=== PATIENT | male | born 1960 | race Caucasian/White ===

== ENCOUNTER 2023-01-13 09:55 | Day surgery (SDC) | payer OTHER ==
[2023-01-13] VITALS (11 sets, daily range): BP systolic 130–144; BP diastolic 61–94; PULSE 81–103; TEMP 97.3–98.2
[~2023-01-13] VITALS: Ht 190.5 cm; Wt 122.2 kg
[2023-01-13] MEDS ORDERED: CRESTOR 10MG10 MG PO (10:34)
[2023-01-13] MEDS ORDERED: HYZAAR 25 MG-101 TAB PO (10:34)
[2023-01-13] MEDS ORDERED: MOBIC15 MG PO (10:35)
[2023-01-13] MEDS ORDERED: LASIX 20MG TABL20 MG PO (10:35)
[2023-01-13] MEDS ORDERED: D3-5050000 IU (10:37)
[2023-01-13] MEDS ORDERED: TYLENOL 500MG500 MG PO (10:38)
[2023-01-13] MEDS ORDERED: NORCO 325 MG-51 TAB PO (10:39)
[2023-01-13] MEDS ORDERED: ASPIRIN E.C. 8181 MG PO (10:39)
--- NOTE | 2023-01-13 12:18 | NUR ---
1008 PT AMBULATORY TO BAY 8 WITH IMPAIRED GAIT, RELATED TO BILATERAL KNEE PAIN. BREATHING EVEN AND UNLABORED. PT IS ALERT AND ORIENTED, ACCOMPANIED BY HIS . CONSENTS REVIEWED AND SIGNED BY PT. PEDAL PULSES OBTAINED BY RACHELLE. IV ESTABLISHED. LR INFUSING VIA DIAL A FLOW AT 100 ML/HR. BILATERAL KNEES SCRUBBED WITH CHLORHEXIDINE SPONGES. KNEE HIGH VICKY HOSE PLACED ON LEFT LOWER EXTREMITY. CALL LIGHT IN REACH. WARM BLANKET PROVIDED.
--- NOTE | 2023-01-13 18:50 | NUR ---
PT TO ROOM 330 FROM PACU WITH AT BEDSIDE. A&O X4. VSS. DRESSING & ACEWRAP TO BILATERAL KNEES CDI WITH TEDS & ICEPACKS ON BLE. CMS WNL. X2 HEMOVACS TO COMPRESSION W/ BLOODY OUTPUT. IVF INFUSING TO RIGHT WRIST. DENYING ANY PAIN OR N/V. ORIENTED PT TO ROOM. BED LOWERED &CALL LIGHT IN REACH. REQUESTING SOME FOOD.
--- NOTE | 2023-01-13 20:00 | NUR ---
PT ABLE TO TOLERATE FOOD WITHOUT N/V. DENYING PAIN & FURTHER NEEDS AT THIS TIME.
--- NOTE | 2023-01-13 23:46 | NUR ---
PT AMBULATED TO RESTROOM WITH X1 ASSIST. C/O PAIN 11/14 IN BILAT KNEES - SEE JUN. BACK IN BED W/ FALL PRECAUTIONS IN PLACE & CALL LIGHT IN REACH.
[2023-01-14 03:14] VITALS: BP 128/68; PULSE 88; TEMP 97.6
[2023-01-14 03:21] VITALS: BP_SYST 128
[2023-01-14 06:50] VITALS: BP 135/55; PULSE 82; TEMP 98.6
[2023-01-14 09:01] VITALS: BP_SYST 135
--- NOTE | 2023-01-14 09:27 | NUR ---
Initial visit; Patient thanked Sign Painter Helper for looking in on him and offering to keep him in her prayers. Patient states that he is doing well.
--- NOTE | 2023-01-14 10:11 | NUR ---
Business Systems Advisor met with Patient at bedside to conduct Care Managment Assessment and discuss discharge planning. Patient lives in [facility] with his and is established with PCP Dr. Virk. Patient is covered with [employer] insurance and requests discharge medications be sent to [facility]. Patient endorses the use of CPAP prior to admission and states that he has a cane, walker, and crutches available at home. Patient reports that he has [facility] on file. Patient would like OP PT established at [facility] when discharged. Discharge Plan: Home with OP PT.
[2023-01-14 11:05] VITALS: BP 112/54; PULSE 88; TEMP 98.6
[2023-01-14 13:02] VITALS: BP_SYST 112
[2023-01-14 13:04] LABS: HEMOGLOBIN 10.6 g/dl (13.5-18.0)
[2023-01-14 13:17] LABS: HEMATOCRIT 30.1 % (42.0-52.0)
[2023-01-14 13:19] LABS: ALBUMIN 3.6 gm/dL (3.4-4.8); BILIRUBIN,TOTAL 0.4 mg/dL (0.2-1.2); CALCIUM 9.4 mg/dL (8.4-10.2); CREATININE, serum 1.27 mg/dL (0.72-1.25); POTASSIUM 4.1 mmol/L (3.5-4.5)
[2023-01-14] MEDS ORDERED: CEPHALEXIN500 M1 PO (13:51)
[2023-01-14] MEDS ORDERED: PERCOCET 325 MG1 TA2 PO (13:51)
[2023-01-14] MEDS ORDERED: XARELTO10 MG PO (13:52)
--- NOTE | 2023-01-14 14:00 | NUR ---
Doughnut Maker contacted [facility] to schedule Patient's OPPT appointment. Appointment is scheduled for Friday, 01-17 at 1100. SW informed Patient and nurse
--- NOTE | 2023-01-14 15:37 | NUR ---
DISCHARGE INSTRUCTIONS REVIEWED WITH PT AND . QUESTIONS ANSWERED, PT LEFT UNIT PER WHEEL CHAIR WITH STAFF.
== END 2023-01-14 15:38 | disposition home or self-care (01) ==
LOC: SDCO 09:55 → SURG 18:50 → SDCO 01-14 15:38
PROVIDERS: Physician Assistant
DX: M17.0 Bilateral primary osteoarthritis of knee (principal); M21.162 Varus deformity, not elsewhere classified, left knee; M21.161 Varus deformity, not elsewhere classified, right knee; G47.33 Obstructive sleep apnea (adult) (pediatric); F17.210 Nicotine dependence, cigarettes, uncomplicated
CPT/HCPCS: OP; A4314; A9284; C1713; C1776; J0665; J0690; J1100; J1580; J1885; J2250; J2270; J2371; J2704; J2795; J3010; J7030; J7120